=== PATIENT | female | born 1940 | race Caucasian/White ===

== ENCOUNTER → 2017-05-06 | Day surgery (SDC) | payer OTHER, BC ==
--- NOTE | 2017-05-05 18:21 | History and Physical ---
History & Physical Date of Service May 05, 2017. 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 Patient continues to note dyspnea on exertion. Patient did have a CT of the chest performed 2012 with notable infiltrative process bilateral lower lobes which notably greatly improved on last CTA performed 03/28/2017. Patient was last seen the Clinic on 04/01/2017. Patient is on CPAP without oxygen at night. She spends 6.3 minutes nightly desaturated less than [address] scan of the chest on 03/28/2017 compared to 03/05/2017 shows slight improvement but persistent airspace consolidation of both lung bases are noted. Near complete resolution of previously seen nodular density in the medial right lung base. An underlying malignancy vs. EDAC cannot be ruled out. 2D echocardiogram on 03/26/2017 shows an EF of 55 percent moderate mitral regurgitation is noted. PA systolic pressure estimated at 34 millimeters Hg. Patient does not desaturate with ambulation. Smoking History: HARMAN is a former smoker. She averages of 1.5 pack(s) of cigarettes per day. She began smoking at age 21. She quit 1987. Patient has a personal history of skin cancer. She reports a family history of cancer (melonoma, breast). - Radon: Positive exposure history of radon exposure current she does not have a radon mitigation system in her home. Active Problems 1. ASCVD (arteriosclerotic cardiovascular disease) 2. Back pain 3. Callaway's esophagus 4. Bronchopneumonia 5. Chest pain 6. Chronic bronchitis 7. Chronic GERD 8. Difficulty breathing 9. Dysphagia 10. Edema 11. Hypertension 12. Hypothyroidism 13. Obesity 14. Obstructive sleep apnea 15. Osteoarthritis 16. SOB (shortness of breath) Past Medical History 1. History of Nephrolithiasis Social History Former smoker (Z87.891) Current Meds 1. Potassium Chloride [place] ER 20 MEQ Oral Tablet Extended Release; TAKE ONE TABLET 2. Breo Ellipta 100-25 MCG/INH Inhalation Aerosol Powder Breath Activated; INHALE ONE 3. Ventolin HFA 108 (90 Base) MCG/ACT Inhalation Aerosol Solution; INHALE 2 PUFFS 4. Allopurinol 300 MG Oral Tablet; TAKE 1 TABLET DAILY; 5. Aspirin TABS; TAKE 81MG DAILY 6. Biotin 5000 MCG Oral Tablet; Take 1 tablet twice daily; 7. Carafate TABS; Take 1 gm in the morning and 2 g in the evening; 8. Clobetasol Propionate 0.05 % External Cream; APPLY SPARINGLY TO AFFECT PRN 9. Dulcolax Stool Softener CAPS; 10. Finacea GEL; APPLY SPARINGLY AND RUB IN WELL TO AFFECTED AREA(S) ONCE DAILY 11. Furosemide 20 MG Oral Tablet; Take 1 tablet twice a day; 12. Hair Skin Nails Oral Capsule 13. Hydrocodone-Acetaminophen 10-325 MG Oral Tablet; TAKE 1 TABLET EVERY 4 HOURS 14. Iron TABS; 15. Levothyroxine Sodium 50 MCG Oral Tablet; TAKE 1 TABLET DAILY; 16. Lidocaine 5 % External Ointment; 17. Losartan Potassium 50 MG Oral Tablet; TAKE 1 TABLET DAILY; 18. Magnesium 250 MG Oral Tablet; TAKE 1 TABLET DAILY; 19. Metoprolol Succinate ER 100 MG Oral Tablet Extended Release 24 Hour; TAKE 1 TABLET QD 20. Metoprolol Tartrate 100 MG Oral Tablet; TAKE 1 TABLET DAILY; 21. Minocycline HCl CAPS; 22. Mirapex 1 MG Oral Tablet; TAKE 1 TABLET 3 TIMES DAILY; 23. Multivitamin Women Oral Tablet; TAKE 1 TABLET DAILY; 24. Neosporin OINT; APPLY SPARINGLY TO AFFECTED AREA(S) ONCE DAILY; 25. Neurontin 100 MG Oral Capsule; TAKE 1 CAPSULE BEDTIME.MAY INCREASE TO 3 26. NexIUM 40 MG Oral Capsule Delayed Release; TAKE 1 CAPSULE TWICE DAILY; 27. Nortriptyline HCl - 10 MG Oral Capsule; TAKE 2 CAPSULES AT BEDTIME; 28. Pepcid TABS; TAKE 1 TABLET AT BEDTIME; 29. PreserVision AREDS Oral Capsule; Take 1 capsule twice daily; 30. Promethazine HCl - 25 MG Oral Tablet; TAKE 1 TABLET EVERY 6 HOURS NEEDED 31. Vitamin B12 100 MCG Oral Tablet; TAKE 1 TABLET DAILY DIRECTED; 32. Vitamin D 2000 UNIT Oral Tablet; 1 tablet daily; 33. Voltaren 1 % Transdermal Gel; 34. ZyrTEC Allergy 10 MG Oral Capsule; Take 1 tablet daily; Allergies 1. Amoxicillin TABS 2. Ciprofloxacin HCl TABS 3. Cephalosporins 4. Macrobid CAPS 5. Macrodantin CAPS 6. Nitrofurantoin CAPS 7. Quinolones 8. Sulfa Drugs 9. Sulfamethoxazole POWD 10. Sulfamethoxazole-Trimethoprim TABS 11. Vancomycin HCl SOLR Denied 12. Keflex TABS Immunizations Influenza --- Series1: 2011; Series2: 23-Jan-2016 PPSV --- Series1: 2009 Vital Signs Recorded: 16Apr2017 10:05AM Height: 5 ft 3 in Weight: 237 lb BMI Calculated: 41.98 BSA Calculated: 2.08 Respiration: 18 Heart Rate: 72 O2 Saturation: 96, RA Temperature: 97.7 F Blood Pressure: 120 / 72, LUE, Sitting Physical Exam Constitutional General appearance: No acute distress, well appearing and well nourished. Eyes Conjunctiva and lids: No swelling, erythema or discharge. Pupils and irises: Equal, round and reactive to light. Ears, Nose, Mouth, and Throat External inspection of ears and nose: Normal. Otoscopic examination: Tympanic membranes translucent with normal light reflex. Canals patent without erythema. Oropharynx: Normal with no erythema, edema, exudate or lesions. Pulmonary Respiratory effort: No increased work of breathing or signs of respiratory distress. Auscultation of lungs: Abnormal. Decreased breath sounds at the bases with fine rales. Cardiovascular Palpation of heart: Normal PMI, no thrills. Auscultation of heart: Normal rate and rhythm, normal S1 and S2, without murmurs. Examination of extremities for edema and/or varicosities: Normal. Abdomen Abdomen: Non-tender, no masses. Liver and spleen: No hepatomegaly or splenomegaly. Lymphatic Palpation of lymph nodes in neck: No lymphadenopathy. Musculoskeletal Gait and station: Normal. Digits and nails: Normal without clubbing or cyanosis. Inspection/palpation of joints, bones, and muscles: Normal. Skin Skin and subcutaneous tissue: Normal without rashes or lesions. Neurologic Cranial nerves: Cranial nerves 2-12 intact. Reflexes: 2+ and symmetric. Sensation: No sensory loss. Psychiatric Orientation to person, place, and time: Normal. Mood and affect: Normal.
[~2017-05-06] VITALS: Ht 152.4 cm; Wt 107.8 kg
[2017-05-06] VITALS (8 sets, daily range): BP systolic 109–139; BP diastolic 55–87; PULSE 61–77; TEMP 36.5–37; O2SAT 97–100; Ht 152.4 cm; Wt 107.8 kg
[~2017-05-06] MED LIST: ALBUAER2 INH; ALLO300T2 PO; ASPI1TAB83 PO; AZEL15GE TOP; B CO PO; BIOTCAP2 PO; CETI10TA84 PO; CHOL100010 PO; CLBCRM30 EXT; CYAN10005 PO; CZR50 PO; DICL1GEL12 TOP; FAMO20TA11 PO; FENTANYL CITRATE INJ 50 MCG/1 ML 2 ML VIAL IV ONE; FERR1TAB23 PO; FLUN1AER INH; FLUT1INH; FURO20TA PO; HYDR-4380 PO; KCLP20 PO; KFL500 PO; LIDOCAINE 4% INH SOLN 4 ML BTL TOP ONE; LIDOCAINE HCL 2% LOCAL 50ML VIAL INSTIL ONE; LIDOCAINE VISCOUS 2% 100ML TOP ONE; LPT20 PO; MELA1TAB54 PO; MELO-84 PO; METO100T44 PO; MIDAZOLAM HCL 5 MG/ML 1 ML VIAL IV ONE; MINO100C22 PO; MULT-190 PO; NEOMOIN3 TOP; NORT10CA2 PO; NRN/300 PO; NXM/40 PO; ONDA4TAB46 SL; POTA1TAB97 PO; PROM1SUP19 PR; RIVA1TAB4 PO; SUCR1TAB29 PO; SYN50 PO; [UNRECOGNIZED DRUG - OTHER] PO; lidocaine TOP; magnesium PO
--- NOTE | 2017-05-06 08:56 | History & Physical Bridge Note ---
H&P Re-Evaluation Bridge Note: I have examined the patient, reviewed the History & Physical and in the interval since the performance of the History & Physical I have noted the following changes of clinical significance: No changes noted
--- NOTE | 2017-05-06 08:57 | Pre Sedation Assessment ---
Pre Sedation Assessment General Date of Sedation: May 06, 2017. Review Cardiovascular: regular rate, rhythm, no edema, no gallop, no JVD, no murmur, normal peripheral pulses Lungs: chest non-tender, lungs clear, normal breath sounds, no respiratory distress, no accessory muscle use Pre-Sedation Airway Assessment Smoking Status: Former Smoker Hx of Sleep Apnea: Yes Hx of difficult intubation: No Short Thick Neck: Yes Thyro-mental Distance: < or =3 Finger Breadths Oral Cavity: WNL Mallampati Classification: Class III ASA Classification: Class II Procedure Planning Contraindications for Sedation: None Current Medications Reviewed: Yes Notes The planned sedation has been discussed with the patient. Informed Consent was obtained. I have identified the patient, determined the appropriateness of sedation and have assessed the patient immediately prior to the procedure. All medicine(s) and interventions are by my order.
--- NOTE | 2017-05-06 10:17 | Post Sedation Assessment ---
Post Sedation Assessment General Date of Sedation May 06, 2017. Vital Signs: Vital Signs Past 12 Hours Date Time Temp Pulse Resp B/P (MAP) Pulse Ox O2 Delivery O2 Flow Rate FiO2 05/06/17 08:26 36.9 77 20 131/78 (95) 99 Room Air Post Procedure Recovery Score Activity: (2) Moves 4 extremities * Respiration: (2) Deep breath/cough Circulation: (2) +/-20% PreAnes Value Consciousness: (1) Arouseable (by name) Oxygen Saturation: (1) O2 needed for >90% Discharge Sedation Level of Care: Fast Track Phase II Post Sedation Plan On clinical assessment, the patient appears to have tolerated the sedation without complications. Patient is recovering as anticipated. Patient will continue to be monitored by nursing and may be discharged when sedation discharge criteria are met per below protocol. Upon Completions of procedure and additional 15 minutes continue every 5 minute vital signs and the P.A.R. score; then discharge to a Phase I or Fast Track to Phase II per the following guidelines: * Discharge Patient to appropriate Phase II area if PAR is 8 or greater or return to pre- procedure baseline. The post - procedure orders will be as directed. * If PAR score is less than 8 or not return to pre-procedure baseline then patient will follow Phase I monitoring till PAR is reached for Phase II. The Phase I may be done in procedure room or may call to secure a Phase I area. * If naloxone or flumazenil are used for reversal, hold in Phase I for an additional 60 -120 minutes before discharge to Phase II. Please call the Sedation Physician to re-evaluate and complete post-note for discharge to Phase II area. Do NOT discharge from procedure sedation or Phase 1 until post- sedation evaluation note is complete by procedure /sedation MD Sedation Discharge Instructions to be given to the patient at discharge to home.
--- NOTE | 2017-05-06 10:19 | Bronchoscopy Procedure Note ---
Bronchoscopy Procedure Note Procedure: Bronchoscopy, conscious sedation, BAL Lingula Consent: Obtained through the patient placed into the chart Pre-procedural diagnosis: Chronic Cough Post-procedural diagnosis: Chronic Cough Start time: 954 End time: 0 Total time: 15 minutes Analgesia: 2% liquid lidocaine: Via nebulizer 4% gel lidocaine: Via right naris 2% liquid lidocaine: Via bronchoscopy Sedation: Versed IV: 3mg Fentanyl IV: 75g Procedure: The Olympus video bronchoscope was used for this procedure and passed down through the right naris Right naris/posterior naris/posterior oropharynx: Anatomically within normal limits, mild erythema Glottis: Anatomically within normal limits Vocal cords: Proper abduction and abduction, anatomically within normal limits Subglottis/trachea/Jillian: Anatomically within normal limits Right bronchial tree: Right mainstem bronchus: EDAC of 70% Right upper lobe: Anatomically within normal limits Bronchus intermedius: EDAC 80% Right middle lobe: Anatomically within normal limits Right lower lobe: Anatomically within normal limits Findings: No significant findings noted Left bronchial tree: Left mainstem bronchus: EDAC 80% Left upper lobe: Anatomically within normal limits Lingula: Anatomically within normal limits Left lower lobe: Anatomically within normal limits Findings: No significant findings noted Bronchial alveolar lavage: Lingula EBL: none Complications: None Follow-up: ASU
--- NOTE | 2017-05-06 10:22 | Discharge Instructions ---
Discharge Instructions Date of Service May 06, 2017. Admission Reason for Admission: Shortness Of Breath, Chronic Bronchitis Discharge Discharge Diagnosis / Problem: Chronic Cough Discharge Goals Goal(s): Diagnostic testing Activity Recommendations Activity Limitations: resume your previous activity . Instructions / Follow-Up Instructions / Follow-Up [facility] Current Hospital Diet Patient's current hospital diet: Discharge Diet Recommended Diet: Regular Diet Procedures Procedures Performed: BRONCHOSCOPY, Bronchial Lavage Lingula and consiouc sedation Pending Studies Studies pending at discharge: no Medical Emergencies . Who to Call and When: Medical Emergencies: If at any time you feel your situation is an emergency, please call 911 immediately. . Non-Emergent Contact Non-Emergency issues call your: Dry Box Operator . . "Provider Documentation" section prepared by Adria Marr. . VTE Core Measure Inpt VTE Proph given/why not?: Other Anticoagulation (Aspirin)
--- NOTE | 2017-05-06 12:42 | DIAGNOSTIC IMAGING REPORT ---
CHEST ONE VIEW PORTABLE CLINICAL HISTORY: Chest pain. Shortness of breath. COMPARISON STUDY: Chest CT March 28, 2017. FINDINGS: Incidental note is made of an anterior cervical spine fusion. Cardiomegaly is unchanged. There is no evidence for pulmonary edema. Elevation of the right hemidiaphragm is unchanged. No consolidation is identified. IMPRESSION: No acute cardiopulmonary findings. Electronically signed by: Everardo Gonzales M.D. 05/06/2017 12:40 PM Dictated Date/Time: 05/06/2017 12:39 PM
== END | disposition home or self-care (01) ==
LOC: C.ACU 07:43
PROVIDERS: ATTEND Internal Medicine Critical Care Medicine
DX: J42 Unspecified chronic bronchitis (principal); K21.9 Gastro-esophageal reflux disease without esophagitis; R13.10 Dysphagia, unspecified; I10 Essential (primary) hypertension; E03.9 Hypothyroidism, unspecified; G47.33 Obstructive sleep apnea (adult) (pediatric); M19.90 Unspecified osteoarthritis, unspecified site; Z87.442 Personal history of urinary calculi; Z87.891 Personal history of nicotine dependence; Z87.01 Personal history of pneumonia (recurrent); Z79.82 Long term (current) use of aspirin; Z88.2 Allergy status to sulfonamides

== ENCOUNTER → 2017-06-27 | Outpatient (CLI) | payer OTHER, BC ==
[~2017-06-27] MED LIST changes: -CZR50 PO; -FENTANYL CITRATE INJ 50 MCG/1 ML 2 ML VIAL IV ONE; -FLUN1AER INH; -KCLP20 PO; -LIDOCAINE 4% INH SOLN 4 ML BTL TOP ONE; -LIDOCAINE HCL 2% LOCAL 50ML VIAL INSTIL ONE; -LIDOCAINE VISCOUS 2% 100ML TOP ONE; -LPT20 PO; -MELA1TAB54 PO; -MIDAZOLAM HCL 5 MG/ML 1 ML VIAL IV ONE; -ONDA4TAB46 SL; -RIVA1TAB4 PO
[2017-06-27 14:45] LABS: BASO % 0.6 %; BASO ABS # 0.04 K/uL (0-0.2); EOS % 4.4 %; EOS ABS # 0.29 K/uL (0-0.5); HEMATOCRIT 39.9 % (37-47); IG# 0.03 K/uL (0.00-0.02); LYMPH % 28.7 %; MEAN CORPUSCULAR HGB CONC 32.6 g/dl (32-36); MEAN PLATELET VOLUME 8.9 fL (7.4-10.4); MONO ABS # 0.66 K/uL (0.11-0.59); NEUT % 55.8 %; NEUT ABS # 3.69 K/uL (1.4-6.5); PLATELET COUNT 230 K/uL (130-400); RED CELL DISTRIBUTION WIDTH CV 15.3 % (11.5-14.5); RED CELL DISTRIBUTION WIDTH SD 52.5 fL (36.4-46.3); WHITE BLOOD COUNT 6.61 K/uL (4.8-10.8)
[2017-06-27 15:11] LABS: ALBUMIN 3.6 gm/dl (3.4-5.0); ALKALINE PHOSPHATASE 151 U/L (45-117); ALT/SGPT 27 U/L (12-78); AST/SGOT 33 U/L (15-37); BLOOD UREA NITROGEN 13 mg/dl (7-18); CALCIUM 8.8 mg/dl (8.5-10.1); CARBON DIOXIDE 27 mmol/L (21-32); CREATININE 1.04 mg/dl (0.60-1.20); GLUCOSE 91 mg/dl (70-99); POTASSIUM 4.2 mmol/L (3.5-5.1); SODIUM 138 mmol/L (136-145); TOTAL PROTEIN 7.3 gm/dl (6.4-8.2)
--- NOTE | 2017-06-28 14:03 | PULMONARY FUNCTION TEST ---
SPIROMETRY REPORT Pre-bronchodilator spirometry is well within normal limits. There was a modest response to bronchodilator as evidenced by improved flow measured at low lung volumes. This may suggest the presence of early reversible airways disease. Lung volumes and diffusion capacity were essentially within normal limits. Clinical correlation is needed.
== END | disposition home or self-care (01) ==
LOC: C.RC 12:13
PROVIDERS: ATTEND Internal Medicine Pulmonary Disease
DX: J18.0 Bronchopneumonia, unspecified organism (principal); G47.33 Obstructive sleep apnea (adult) (pediatric); I25.10 Atherosclerotic heart disease of native coronary artery without angina pectoris; R60.9 Edema, unspecified; M54.9 Dorsalgia, unspecified

== ENCOUNTER → 2017-07-08 | Outpatient (CLI) | payer OTHER, BC ==
--- NOTE | 2017-07-09 06:16 | PAP/PSG TECHNICIAN REPORT ---
[facility] Corporate General Manager Polysomnogram Report Study name: None Report date: 07/09/2017 Study date: 07/08/2017 Referring Physician: Andres Cardoza MD Name: HARMAN YU Interpreting Physician: Joe Luther D.O. Date of : 1940 Corporate General Manager: Dominique Newby [facility]. Sex: Female Age: 77 StudyType: PSG Weight: 239 lbs Height: 77 years, Height 5' 3" BMI: 42.33 Medications: Potassium Chloride 20 MEQ< Breo Ellipta 100-25 MCG/INH, Ventolin HFA 10/ ( 90 Base), Allopurinal 300 mg, Aspirin, Carafate , Clobetasol Propionate 0.05%, [place] Finacea Gel, Furosemide 20 mg, Hydrocodone-Acetaminophen 10-325 mg, Iton tabs, Levothyroxine 50 MCG, Lidocaine 5 %, Magnesium 250 mg, Metoprolol Succinate 100 mg, Minocycline, Mirapex, Multi Vitamins, Nexium 40 mg, Pepcid, Preser Vision, Promethazine 25 mg, Super B Complex, Vitamin B 12, Vitamin D 2000 , Voltaren 1%, Zyrtec Patient History 77 yr. old female here for a diagnostic sleep study. Patent had a positive sleep study in 2011, had a titration study but only used CPAP for two weeks home, she was told it was mild and did not need to use. Patient is falling asleep now all the time and is tired. ESS 21/24. Patient has stocking and wraps on her legs for Edema. Sleeping with head of bed and feet elevated, she has been sleeping in a recliner Parameters Monitored NPSG: E1-M2, E2-M1, Fp1-M2, Fp2-M1, F3-M2, F4-M2, F4-M1, C3-M2, C4-M2, C4-M1, O1-M2, O2-M2, O2-M1, T3-M2, T4-M1, P3-M2, P4-M1, CHIN1, CHIN2, HR, EKG, Legs, PFLOW, SNOR, FLOW, CFLOW, Tidal Volume, THOR, ABDO, SpO2, PLTH, CPRESS, ETCO2 Wave, ETCO2, pH Sleep Architecture Sleep Stages Time at Lights Off 10:57:12 PM STAGES Time (min.) TST (%) Time at Lights On 5:33:12 AM Wake 45.5 -- Total Recording Time (TRT) 396.50 min. N1 20.5 6 Total Sleep Period (TSP) 390.5 min. N2 238.0 68 Total Sleep Time (TST) 350.5min. N3 54.5 16 Awake Time 45.5 min. REM 37.5 11 Wake after Sleep Onset 40.0 min. Sleep Efficiency (SE) 89 % Sleep Onset Latency (BLAINE) 5.5 min. Number of Stage 1 Shifts None Awakenings 13 Stage Changes 64 Number of REM periods 2 REM 37.5 11 REM Latency 191.0 min. NREM 313.0 89 Body Position Analysis Supine Right Left Side Prone Vertical Total Sleep Time (min.) 396.0 0.0 0.0 0.00 0.0 0.0 Total Sleep Time (%) 100% 0% 0% 0 0% N/A% Total Sleep Time REM (min.) 37.5 0.0 0.0 None 0.0 0.0 Total Sleep Time NREM (min.) 313.0 0.0 0.0 None 0.0 0.0 Intermittent Wake (min.) 45.5 0.0 0.0 None 0.0 0.0 Total Sleep Period (%) 100% None None None None None Arousals Myoclonus (PLM) * Events Count Index Events Count Index Spontaneous 6 1 Events Awake (PLMW) 51 67.3 Respiratory 1 0.2 Events Asleep w/ Arousal (PLMA) 32 5.5 PLM 32 5 Events Asleep w/o Arousal (PLMS) 23 3.9 Snoring 3 1 Total Asleep 55 9.4 Total 42 7 Total 106 16 Respiratory Analysis * CA OA MA CH H RERA Total Count 0 0 0 0 33 0 33 Index 0.0 0.0 0.0 0 5.6 0 5.6 Mean Duration 0.0 0.0 0.0 0.00 20.1 0.0 20.1 Longest Duration 0.0 0.0 0.0 0.00 0.0 0.0 36.7 Respiratory Event Summary Total Supine ~Supine Right Left Prone REM NREM Apneas Count 0 0 N/A N/A N/A N/A 0 0 Index 0.0 0 N/A N/A N/A N/A 0 0 Hypopneas (4% Desat) Count 33 33 N/A N/A N/A N/A 14 19 Index 5.6 5.6 N/A N/A N/A N/A 22.4 3.6 Apneas & All Hypopneas Count 33 33 N/A N/A N/A N/A 14 19 Index 5.6 6 N/A N/A N/A N/A 22.4 3.6 Respiratory Events (Supervisor [employer]+All Hyp+RERA) Count 33 33 N/A N/A N/A N/A 14 19 Index 5.6 6 N/A N/A N/A N/A 22.4 3.6 Respiratory Related Arousal Count 1 33 N/A N/A N/A N/A 0 1 Index 0.2 0 N/A N/A N/A N/A 0 0 Snoring Analysis Supine Right Left Prone REM NREM Total Snore duration 1.1 min Snores count 41 N/A N/A N/A 1 40 41 Snore mean duration 1.7 Sec Snores index 7 N/A N/A N/A 1.6 7.7 7.0 TST with snoring (%) 0.3% SpO2 Analysis Total REM NREM Awake <50% 0.0 min. 0.0 min. 0.0 min. 0.0 min. 51 - 60% 0.0 min. 0.0 min. 0.0 min. 0.0 min. 61 - 70% 0.0 min. 0.0 min. 0.0 min. 0.0 min. 71 - 80% 0.0 min. 0.0 min. 0.0 min. 0.0 min. 81 - 90% 5.8 min. 4.0 min. 1.4 min. 0.3 min. 91 - 100% 380.9 min. 33.5 min. 311.6 min. 35.9 min. Average 94 93 94 95 Minimum SpO2 85 85 88 88 Desaturation Event Index 5.6 19.2 3.6 7.9 # Desat. Events below 89% 9 8 1 N/A Time(%) with Saturation below 89% 0.4 0.3 0.0 0.0 Time(min.) with Saturation below 89% 1.4 1.3 0.1 0.0 Heart Rate Analysis End Tidal CO2 Analysis Min (bpm) Max (bpm) Average (bpm) TSP (mins) % of TSP Awake 64 127 77 Above 55 mmHg 0.0 0.0 NREM 66 84 74 50-55 mmHg 0.0 0.0 REM 72 82 78 45-50 mmHg 1.7 0.5 Overall 66 84 75 40-45 mmHg 174.2 49.7 35-40 mmHg 159.8 45.6 30-35 mmHg 8.9 2.6 Average ETCO2 0.2 Supplemental O2 Values Minimum O2 level: None Value Start Time End Time Corporate General Manager Comments MS. Yu slept with head of bed and feet elevated in the position. No cardiac arrhythmia. PLMs noted. No bruxism noted. Snoring was noted and scored as a 2 on a scale of 0 through 5. (0=no snoring, 5=snoring loud enough to be heard through a closed door or down the [address]) MS. Yu awoke to use the restroom once during the night. MS. Yu stated, I had a lot of pain last night and my stomach is upset. The final report will be interpreted and signed by a sleep physician. The completed physician report will then be placed in the patient medical record. Therapy (cm H2O) 0 TIB (min.) 396.0 TST (min.) 350.5 Sleep Onset (min.) 5.5 REM Onset From Sleep (min.) 191.0 Sleep Efficiency % 89 Wakefulness (%) 11 Wakefulness (min.) 45.5 NREM 1 (%) 6 NREM 1 (min.) 20.5 NREM 2 (%) 68 NREM 2 (min.) 238.0 NREM 3 (%) 16 NREM 3 (min.) 54.5 REM (%) 11 REM (min.) 37.5 # Arousals 42 Arousal Index 7 # Snore 41 Snore Index 7.0 AHI 5.6 AHI Supine 6 AHI Non-Supine N/A NREM AHI 3.6 REM AHI 22.4 RDI 5.6 # Obstructive Apnea 0 # Central Apnea 0 # Mixed Apnea 0 # Hypopneas 33 RERAs 0 Total Respiratory Events 42 Time Below SpO2 89% (min.) 1.4 Mean NREM SpO2 (%) 94 Mean REM SpO2 (%) 93 Mean Sleep SpO2 (%) 94 Min NREM SpO2 (%) 88 Min REM SpO2 (%) 85 Position Supine (min.) 396.0 Position Non-supine (min.) 0.0 LM Index Sleep 9.4 LM Index NREM 10.0 LM Index REM 4.8 Mean Heart Rate (bpm) 75 Min Heart Rate (bpm) 66
--- NOTE | 2017-07-12 17:36 | POLYSOMNOGRAPH REPORT ---
CLINICAL DATA: The patient is a 77-year-old female. She previously was diagnosed with mild obstructive sleep apnea. She had a titration study but only used CPAP for a short time. The chief complaint at present is excessive daytime somnolence. Her Tram sleepiness scale score is severely elevated at 21 out of a possible 24. Her BMI is 42.33. This was an in-lab overnight polysomnography. SLEEP ARCHITECTURE: The total sleep period was 390.5 minutes. The total sleep time was 350.5 minutes. The sleep efficiency was 89%. Sleep latency was normal at 5.5 minutes. Wake after sleep onset was 40 minutes. The REM latency was prolonged at 191 minutes. There was only 1 REM period during the night. Sleep consisted of stage N1 6%, stage N2 68%, stage N3 16%, stage REM 11%. AROUSAL DATA: The patient had a total of 42 arousals including 6 spontaneous arousals, 1 respiratory arousal, 32 PLM arousals, and 3 snoring arousals. The arousal index was 7. PLM DATA: The patient had a total of 55 periodic limb movements of sleep for a PLM index of 9.4. There were 32 arousals, associated with limb movements for a PLM arousal index of 5.5. EKG: The minimum heart rate was 66 beats per minute. The maximum heart rate was 84 beats per minute. The average heart rate was 75 beats per minute. No cardiac arrhythmias noted. RESPIRATORY DATA: The patient had a total of 33 respiratory events, all hypopneas. Hypopneas were scored according to the 4% desaturation rule. The mean duration of the hypopneas was 20.1 seconds. The apnea-hypopnea index was 5.6. This represents very mild obstructive sleep apnea. OXIMETRY DATA: The average saturation for the night was 94%. The minimum saturation was 85%, but there was only a total of 1.4 minutes with saturations less than 89%. THERAPIST SPEECH COMMENTS: The patient slept with the head of the bed and the feet elevated. No cardiac arrhythmia. PLMs noted. No bruxism noted. Snoring was noted and scored as a 2 on a scale of 0 through 5. The patient awakened to use the restroom once during the night. The patient indicated she had a lot of pain during the night and that her stomach was upset. IMPRESSION: Mild obstructive sleep apnea. COMMENTS: The patient had a near normal sleep efficiency. There was less REM sleep than normal. She does take Mirapex. It is unknown if she carries a diagnosis of restless legs or if she might be taking it for another reason. She had a relatively mild number of limb movements on this night. She has very mild sleep apnea, but with a severely elevated Tram sleepiness scale. It seems unlikely that such mild sleep apnea would be accounting for this degree of daytime somnolence. Obviously other conditions should be excluded. She does take some medications which could contribute to daytime somnolence including hydrocodone, Mirapex, and metoprolol. RECOMMENDATIONS: 1. Consideration could be given to a repeat trial of nasal CPAP. 2. Weight loss is advised in light of the elevation of body mass index at 42.33. 3. It is suggested that she avoid sleeping in the supine position. She spent essentially the entire night supine. 4. The patient should be advised of the appropriate principles of sleep hygiene including having a regular sleep-wake schedule and allowing approximately 7.5-8 hours of sleep per night.
== END | disposition home or self-care (01) ==
LOC: C.NEUR 20:00
PROVIDERS: ATTEND Internal Medicine Pulmonary Disease
DX: G47.33 Obstructive sleep apnea (adult) (pediatric) (principal)